=== PATIENT | female | born 1970 | race African-American/Black ===

== ENCOUNTER 2020-05-17 08:27 | Emergency (ER) | payer OTHER ==
[~2020-05-17] VITALS: Ht 167.6 cm; Wt 98.0 kg
[2020-05-17] MEDS ORDERED: IBUPROFEN400 MG PO (09:12)
[2020-05-17 09:24] VITALS: BP 164/85
== END 2020-05-17 09:25 | disposition home or self-care (01) ==
LOC: ER 08:32
DX: J02.9 Acute pharyngitis, unspecified (principal); R42 Dizziness and giddiness; E11.65 Type 2 diabetes mellitus with hyperglycemia; I10 Essential (primary) hypertension
CPT/HCPCS: 36415; 82948; 83518; 87070; 93005; 99283